=== PATIENT | female | born 1990 | race Caucasian/White ===

== ENCOUNTER 2017-06-15 02:05 | Inpatient (IN) ==
--- OUTSIDE RECORDS SUMMARY | 2017-06-15 02:11 | External Medical Summary | Continuity of Care Document ---
:1990 Author Organization [facility] Address [address] [place], [place] [id number] Phone Allergies, Adverse Reactions, Alerts Substance Reaction Severity Status No Known Drug Allergies Unknown Active Medications Medication Instructions Dosage Effective Dates Status Comments (start - stop) Rhophylac 1,500 - Active unit (300 mcg)/2 mL injection syringe Vitamin take 1 tablet by Not Available - Active tablet oral route every day Problems Condition Effective Dates (start - stop) Clinical Status Encntr for suprvsn of normal first - preg, third trimester 33 weeks gestation of - Pap Smear Screening, Cervix - Encntr for suprvsn of normal first - preg, first trimester 10 weeks gestation of - Encntr for suprvsn of normal first - preg, second trimester 27 weeks gestation of - Matern care for oth or susp poor fetl - grth, third tri, unsp 33 weeks gestation of - Encntr for suprvsn of normal first - preg, second trimester 19 weeks gestation of - Encntr for suprvsn of normal first - preg, second trimester 14 weeks gestation of - Encntr for suprvsn of normal first - preg, second trimester 19 weeks gestation of - Encntr for suprvsn of normal first - preg, second trimester 23 weeks gestation of - Encntr for suprvsn of normal first - preg, third trimester 35 weeks gestation of - Encntr for suprvsn of normal first - preg, third trimester 29 weeks gestation of - Encntr for suprvsn of normal first - preg, third trimester 31 weeks gestation of - OCP Surveillance - Active Urinary Frequency - Active Procedures Procedure Date OB Visit No Charge Results Test Name Date and Time Measure Units Reference Range Abnormal Flag Comments Unknown Advance Directives Directive Yes / No Effective Date File Name Unknown Encounters Encounter Practice Location Reason(s) Diagnoses Date Provider Care Team Description For Visit Members Jennifer Gonzalez Encntr for Garcia Referring In Womens suprvsn of Alice. Provider: Verna SEGAL, normal first 7 [address], preg, third Medical Emily, [address] [place], [place], [id number] [facility] [id number], weeks , [facility] gestation of 120, To 120, tel:+ Carlos Gonzalez, [address] [place], [place], [phone]. , [place]. tel: tel: [phone] Jennifer Gonzalez Encntr for Garcia Referring In Womens suprvsn of Alice. Provider: Verna SEGAL, normal first 7 [address], preg, third Medical Emily, [address] [place], [place], [id number] [facility] [id number], weeks , [facility] [place] gestation of 120, To 120, tel: Carlos Gonzalez, [address] [place], [place], [phone]. , [place]. tel: tel: [phone] Jennifer Gonzalez Matern care Apr- Garcia Referring In Womens Ultrasound for oth or Alice. Provider: Verna SEGAL, susp poor 7 [address], fetl grth, Medical Emily, [address] [place], [place], third tri, [facility] [id number], [id number] weeks , [facility] [place] gestation of 120, To 120, tel:[phone] Carlos Gonzalez, [address] [place], [place], [phone]. , [place]. tel: tel: [phone] Jennifer Gonzalez Encntr for Delroy-1 Garcia Referring In Womens suprvsn of 1-201 Alice. Provider: Verna SEGAL, normal first 7 [address], preg, third Medical Emily, [address] [place], [place], [id number] [facility] [id number], weeks , [facility] gestation of 120, To 120, tel: Carlos Gonzalez, [address] [place], [place], [phone]. , [place]. tel: tel: [phone] Jennifer Gonzalez Encntr for Tejinder-2 Price Referring In Womens suprvsn of 7-201 Lulu. Provider: Verna SEGAL, normal first 7 [address], preg, third Medical Emily, [address] [place], [place], [id number] [facility] [id number], weeks Dr [facility] gestation of 120, To 120, tel: Carlos Gonzalez, [address] [place], [place], [id number] [phone]. , [place]. tel: tel: [phone] Jennifer Gonzalez Encntr for Tejinder-1 Price Referring In Womens suprvsn of 3-201 Lulu. Provider: Verna SEGAL, normal first 7 [address], preg, second Medical Emily, [address] [place], [place], [id number] [facility] [id number], weeks Dr [facility] gestation of 120, To 120, tel:21 Carlos Gonzalez, [address] [place], [place], [phone]. , [place]. tel: tel: [phone] Jennifer Gonzalez Encntr for May-1 Price Referring In Womens suprvsn of 8-201 Lulu. Provider: Verna SEGAL, normal first 7 [address], preg, second Medical Emily, [address] [place], [place], [id number] [facility] [id number], weeks Dr [facility] [place] gestation of 120, To 120, tel:21 Carlos Gonzalez, [address] [place], [place], [phone]. , [place]. tel: tel: [phone] Jennifer Gonzalez Encntr for Apr-1 Price Referring In Womens suprvsn of 9- Lulu. Provider: Verna SEGAL, normal first 7 [address], preg, second Medical Emily, [address] [place], [place], [id number] [facility] [id number], weeks , [facility] [place] gestation of 120, To 120, tel: Carlos Gonzalez, [address] [place], [place], [phone]. , [place]. tel: tel: [phone] Jennifer Gonzalez Encntr for Apr-1 Price Referring In Womens Ultrasound suprvsn of - Lulu. Provider: Verna SEGAL, normal first 7 [address], preg, second Medical Emily, [address] [place], [place], [id number] [facility] [id number], weeks Dr [facility] [place] gestation of 120, To 120, tel:21 Carlos Gonzalez, [address] [place], [place], [phone]. , [place]. tel: tel: [phone] Jennifer Gonzalez Encntr for Mar-1 Price Referring In Womens suprvsn of - Lulu. Provider: Verna SEGAL, normal first 7 [address], preg, second Medical Emily, [address] [place], [place], [id number] [facility] [id number], weeks Dr [facility] [place] gestation of 120, To 120, tel:21 Carlos Gonzalez, [address] [place], [place], [phone]. , [place]. tel: tel: [phone] Jennifer Gonzalez Pap Smear Feb- Price Referring In Womens Screening, - Lulu. Provider: Verna SEGAL, CervixEncntr 7 [address], for suprvsn Medical Emily, [address] [place], [place], of [facility] Medical [id number], first [email or web address], , [facility] [address] CASAS first 120, To 120, tel: [id number] Carlos Gonzalez, [address] [place], [place], gestation of [id number]. , [place]. tel: tel: [phone] Jennifer Gonzalez Emily Referring In Womens 3-201 Tali. Provider: Health PA, 5 [address], Medical Emily, 700 [facility] Medical [id number], , [facility] Dr CASAS 120, To 120, tel: Carlos Gonzalez, [address] [place], [place], [phone]. , [place]. tel: tel: [phone] Family History Family Member Diagnosis Age At Onset No family history of Lung Disease No family history of Pulmonary Embolism No family history of Osteoporosis Maternal Grandfather Cardiovascular Disease No family history of Thyroid Disorder No family history of Epilepsy No family history of Venous Thrombosis No family history of Kidney Disease No family history of Colon Cancer No family history of Ovarian Cancer No family history of Diabetes No family history of Stroke No family history of Breast Cancer No family history of Hypertension Immunizations Vaccine Date Status Comments Tdap completed Source: New Immunization Record [facility] completed Source: New Immunization Record Payers Payer name Insurance type Covered green party ID Authorization(s) [employer]end[employer]ize [id number] [employer] [place] - Medicaid MC [id number] [facility] [id number] [facility] [id number] [place] - Medicaid MC [id number] [facility] [email or web address] [id number] [place] - Medicaid MC [id number] Social History Type Description Quantity Date Captured Alcohol Use Details No Caffeine Use Details Unknown Tobacco Use Status Unknown Smoking Status Never smoker Vital Signs Date / Height Weight BMI Pulse Blood Temperature Respiratory Body Head BMI Time: Rate Pressure Rate Surface Circumference percentile Area 145.40 26.3 120/79 lbs 4 mm[Hg] 1:36 kg/m PM eter (2) Chief Complaint And Reason For Visit Unknown Chief Complaint And Reason For Visit Reason For Referral Reason For Referral Unknown Plan Of Care Date Type Action Status Appointment Luiza Jaramillo BOOKED Future Order: Radiology Order Ultrasound OB Follow-up ([id number]) Ordered Future Order: Radiology Order Complete OB Ultrasound > 14 Ordered Weeks ([id number]) Future Order: Lab Order Pap Smear With HPV Reflex If ASCUS Ordered ([id number]) Date Type Problem Goal Intervention Status Start Date Unknown. History Of Present Illness Encounter Date Complaint History Of Present Illness This patient has no known history of present illness Functional Status Encounter Date Functional Assessment Cognitive Assessment Unknown Medications Administered Medication Instructions Dosage Effective Dates (start - stop) Status Comments Drug Treatment Unknown Instructions Date Instruction Additional Information [facility] Preadmis appt handout
--- OUTSIDE RECORDS SUMMARY | 2017-06-15 02:11 | External Medical Summary | Continuity of Care Document ---
:1990 Author Organization [facility] Address [address] [place], [place] [id number] Phone Allergies, Adverse Reactions, Alerts Substance Reaction [...] third trimester 35 weeks gestation of - Pap Smear Screening, [...] third trimester 31 weeks gestation of - Encntr for suprvsn of normal first - preg, third trimester 33 weeks gestation of - Encntr for suprvsn of normal first - preg, third trimester Encounter for screening of - mother 36 weeks gestation of - Encntr for suprvsn of normal first - preg, third trimester 37 weeks gestation of - Encntr for suprvsn of normal first - preg, third trimester 38 weeks gestation of - OCP Surveillance - Active Urinary Frequency - Active Procedures Procedure Date OB Visit No Charge Results Test Name Date and Time Measure Units Reference Range Abnormal Flag Comments Unknown Advance Directives Directive Yes / No Effective Date File Name Unknown Encounters Encounter Practice Location Reason(s) Diagnoses Date Provider Care Team Description For Visit Members Jennifer Gonzalez Encntr for May- Garcia Referring In Womens suprvsn of normal 9-201 Alice. Provider: Health LUZMA, first preg, third 7 [address] [id number] weeks Medical Emily, 700 [address], gestation of [facility], [facility] , [facility] [address] URBINA, 120, To 120, [id number], Carlos Gonzalez, [facility], [place], tel: [phone]. , [place]. tel: tel: [phone] Jennifer Gonzalez Encntr for May- Garcia Referring In Womens suprvsn of normal 2-201 Alice. Provider: Health PA, first preg, third 7 700 Tali PO [address] [id number] weeks Medical Emily, 700 [address]22, gestation of [facility] , [facility] [address] URBINA, 120, To 120, [id number], Carlos Gonzalez, [place], tel: [phone]. , [place]. tel: tel: [phone] Jennifer Gonzalez Encntr for Aug-1 Garcia Referring In Womens suprvsn of normal 6-201 Aliec. Provider: Verna SEGAL, first preg, third 7 700 Tali PO Box trimesterEncounte Medical Emily, 700 [address]22, r for [facility], screening of , [facility] Dr URBINA, [email or web address] weeks 120, To 120, , gestation of Carlos Gonzalez, [place], [place], tel: [phone]. , [place]. tel: tel: [phone] Jennifer Gonzalez Encntr for Aug-0 Garcia Referring In Womens suprvsn of normal 9-201 Alice. Provider: Verna SEGAL, first preg, third 7 700 Tali PO Box [id number] weeks Medical Emily, 700 [address]22, [facility], , [facility] [address] [place]RBINA, 120, To 120, , Carlos Gonzalez, [place], tel: [phone]. , [place]. tel: tel: [phone] Jennifer Gonzalez Encntr for Apr-2 Garcia Referring In Womens suprvsn of normal 6-201 Alice. Provider: Verna SEGAL, first preg, third 7 700 Tali PO Box [id number] weeks Medical Emily, 700 [address]22, gestation of [facility], , [facility] [address] [place]RBINA, 120, To 120, , Carlos Gonzalez, [place], tel: [phone]. , [place]. tel: tel: [phone] Jennifer Gonzalez Matern care for Delroy-2 Garcia Referring In Womens Ultrasound oth or susp poor 6-201 Alice. Provider: Verna SEGAL, fetl grth, third 7 700 Tali PO Box tri, [id number] weeks Medical Emily, 700 [address]22, gestation of [facility], , [facility] [address] URBINA, 120, To 120, , Carlos Gonzalez, [facility], [place], tel: [phone]. , [place]. tel: tel: [phone] Jennifer Gonzalez Encntr for Delroy-1 Garcia Referring In Womens suprvsn of normal 1-201 Alice. Provider: Health LUZMA, first preg, third 7 700 Tali PO Box [id number] weeks Medical Emily, 700 [address]22, gestation of [facility], , [facility] [address] URBINA, 120, To 120, , Carlos Gonzalez, [facility], [place], tel: [phone]. , [place]. tel: tel: [phone] Jennifer Gonzalez Encntr for Tejinder-2 Price Referring In Womens suprvsn of normal 7-201 Lulu. Provider: Health LUZMA, first preg, third 7 700 Tali PO Box weeks Medical Emily, 700 [address]22, gestation of [facility], , [facility] [address] URBINA, 120, To 120, [id number], Carlos Gonzalez, [facility], [place], tel: [phone]. , [place]. tel: tel: [phone] Jennifer Gonzalez Encntr for Tejinder-1 Price Referring In Womens suprvsn of normal 3-201 Lulu. Provider: Health LUZMA, first preg, 7 700 Tali PO Box second Medical Emily, 700 1522, [email or web address] weeks [facility] of , [facility] [address] URBINA, 120, To 120, [id number], Carlos Gonzalez, [facility], [place], tel: [phone]. , [place]. tel: tel: [phone] Jennifer Gonzalez Encntr for May-1 Price Referring In Womens suprvsn of normal 8-201 Lulu. Provider: Health LUZMA, first preg, 7 700 Tali PO Box second Medical Emily, 700 1522, [id number] [facility] of Dr [facility] [address] URBINA, 120, To 120, [id number], Carlos Gonzalez, [place], [place], tel: [phone]. , [place]. tel: tel: [phone] Jennifer Gonzalez Encntr for Apr-1 Price Referring In Womens suprvsn of normal 9-201 Lulu. Provider: Verna SEGAL, first preg, 7 700 Tali PO Box second Medical Emily, 700 1522, [id number] weeks [facility], gestation of , [facility] [address] URBINA, 120, To 120, , Carlos Gonzalez, [place], [place], tel: [phone]. , [place]. tel: tel: [phone] Jennifer Gonzalez Encntr for Apr-1 Price Referring In Womens Ultrasound suprvsn of normal 9-201 Lulu. Provider: Verna SEGAL, first preg, 7 700 Tali PO Box second Medical Emily, 700 [address]22, [id number] weeks [facility], gestation of , [facility] [address] URBINA, 120, To 120, , Carlos Gonzalez, [place], [place], tel: [phone]. , [place]. tel: tel: [phone] Jennifer Gonzalez Encntr for Mar-1 Price Referring In Womens suprvsn of normal 4-201 Lulu. Provider: Verna SEGAL, first preg, 7 700 Tali PO Box second Medical Emily, 700 1522, [id number] weeks [facility], gestation of , [facility] [address] URBINA, 120, To 120, , Carlos Gonzalez, [place], [place], tel: [phone]. , [place]. tel: tel: [phone] Jennifer Gonzalez Pap Smear Feb- Price Referring In Womens Screening, 4-201 Lulu. Provider: Verna SEGAL, CervixEncntr for 7 700 Tali PO Box suprvsn of clarkia Medical Emily, 700 1522, first preg, first [facility], [id number] weeks , [facility] Dr URBINA, gestation of 120, To 120, [id number], Carlos Gonzalez, [place], [place], tel: [phone]. , . tel: tel: [phone] Jennifer Gonzalez Nov- Emily Referring In Womens 3-201 Tali. Provider: [facility], 5 700 Tali PO Box Medical Emily, 700 [address], Rosanky Erin Chavez, , [facility] [address] URBINA, 120, To 120, [id number], Carlos Gonzalez, [place], [place], tel: [phone]. , [place]. tel: tel: [phone] Family History Family Member Diagnosis Age At [...] Comments Tdap completed Source: New Immunization Record Rhophylac completed Source: New Immunization Record Payers Payer name Insurance type Covered republican ID Authorization(s) [employer] [id number] [employer] [place] - Medicaid MC [id number] [facility] [id number] [facility] [id number] [place] - Medicaid MC [id number] [facility] [id number] [employer] - Medicaid MC [id number] Social History Type Description Quantity Date Captured Alcohol Use Details No Caffeine Use Details Unknown Tobacco Use Status Unknown Smoking Status Never smoker Vital Signs Date / Height Weight BMI Pulse Blood Temperature Respiratory Body Head BMI Time: Rate Pressure Rate Surface Circumference percentile Area 146.50 26.5 115/ lbs 4 mm[Hg] 1:30 kg/m PM eter (2) Chief Complaint And Reason For Visit Unknown Chief Complaint And Reason For Visit Reason For Referral Reason For Referral Unknown Plan Of Care Date Type Action Status Appointment Luiza Jaramillo BOOKED Future Order: Radiology Order Ultrasound OB Follow-up ([id number]) Ordered Future Order: Radiology Order Complete OB Ultrasound > 14 Ordered Weeks ([id number]) Future Order: Lab Order Pap Smear With [...] Treatment Unknown Instructions Date Instruction Additional Information labor signs group B strep screening [facility] Preadmis appt handout
--- OUTSIDE RECORDS SUMMARY | 2017-06-15 02:11 | External Medical Summary | Continuity of Care Document ---
:1990 Author Organization [facility] Address [address] [place], [place] [id number] Phone Allergies, Adverse Reactions, Alerts Substance Reaction Severity Status No Known Drug Allergies Unknown Active Medications Medication Instructions Dosage Effective Dates Status Comments (start - stop) Rhophylac 1,500 - Active unit (300 mcg)/2 mL injection syringe Vitamin take 1 tablet by Not Available - Active tablet oral route every day Problems Condition Effective Dates (start - stop) Clinical Status Matern care for oth or susp poor fetl - grth, third tri, unsp 33 weeks gestation of - Pap Smear Screening, Cervix - Encntr for suprvsn of normal first - preg, first trimester 10 weeks gestation of - Encntr for suprvsn of normal first - preg, second trimester 27 weeks gestation of - Encntr for suprvsn [...] Urinary Frequency - Active Procedures Procedure Date Ultrasnd preg uterus, flwup/repeat Results Test Name Date and Time Measure [...] [address], preg, third Medical Emily, [address] [place], [place], [id number] [facility] [id number], weeks , [facility] gestation of 120, To 120, tel:+ Carlos Carlos, [address] [place], [place], [id number]. , [place]. tel: tel: [phone] Jennifer Gonzalez Encntr for Garcia Referring In Womens suprvsn of Alice. Provider: Verna SEGAL, normal first 7 [address], preg, third Medical Emily, [address] [place], [place], [id number] [facility] [id number], weeks Dr [facility] [place] gestation of 120, To 120, tel: Carlos Gonzalez, [address] [place], [place], [id number]. , [place]. tel: tel: [phone] Jennifer Gonzalez Matern care Garcia Referring In Womens Ultrasound for oth or Alice. Provider: Verna SEGAL, susp poor 7 [address], fetl grth, Medical Emily, [address] [place], [place], third tri, [facility] [id number], [id number] weeks , [facility] gestation of 120, To 120, tel: Carlos Carlos, [address] [place], [place], [id number]. , [place]. tel: tel: [phone] Jennifer Gonzalez Encntr for Delroy-1 Garcia Referring In Womens suprvsn of 1-201 Alice. Provider: Verna SEGAL, normal first 7 [address], preg, third Medical Emily, [address] [place], [id number] [facility] [id number], weeks , [facility] gestation of 120, To 120, tel:21 Carlos Carlos, [address] [place], [place], [id number]. , [place]. tel: tel: [phone] Jennifer Gonzalez Encntr for Tejinder-2 Price Ref[facility]201 Lulu. Provider: Verna SEGAL, normal first 7 [address], preg, third Medical Emily, [address] [place], [id number] [facility] [id number], weeks , [facility] gestation of 120, To 120, tel:21 Carlos Gonzalez, [address] [place], [place], [id number]. , [place]. tel: tel: [phone] Jennifer Gonzalez Encntr for Tejinder- Price Referring In Womens suprvsn of 3-201 Lulu. Provider: Verna SEGAL, normal first 7 [address], preg, second Medical Emily, [address] [place], [place], [facility] [id number], weeks Dr [facility] gestation of 120, To 120, tel:21 Carlos Gonzalez, [address] [place], [place], [id number]. , [place]. tel: tel: [phone] Jennifer Gonzalez Encntr for May-1 Price Referring In Womens suprvsn of 8-201 Lulu. Provider: Verna SEGAL, normal first 7 [address], preg, second Medical Emily, [address] [place], [id number] [facility] [id number], weeks Dr [facility] [place] gestation of 120, To 120, tel: Carlos Gonzalez, [id number] [place] [address], [id number]. , [place]. tel: tel: [phone] Jennifer Gonzalez Encntr for Apr-1 Price Referring In Womens suprvsn of - Lulu. Provider: Verna SEGAL, normal first 7 [address], preg, second Medical Emily, [address] [place], [id number] [facility] [id number], weeks , [facility] [place] gestation of 120, To 120, tel: Carlos Gonzalez, [id number] [place] [address], [id number]. , [place]. tel: tel: [phone] Jennifer Gonzalez Encntr for Apr-1 Price Referring In Womens Ultrasound suprvsn of Lulu. Provider: Verna SEGAL, normal first 7 [address], preg, second Medical Emily, [address] [place], [id number] [facility] [id number], weeks Dr [facility] [place] gestation of 120, To 120, tel: Carlos Gonzalez, [address] [place], [place], [id number]. , [place]. tel: tel: [phone] Jennifer Gonzalez Encntr for Mar-1 Price Referring In Womens suprvsn of - Lulu. Provider: Verna SEGAL, normal first 7 [address], preg, second Medical Emliy, [address] [place], [id number] [facility] [id number], weeks Dr [facility] [place] gestation of 120, To 120, tel:21 Carlos Gonzalez, [address] [place], [place], [id number]. , [place]. tel: tel: [phone] Jennifer Gonzalez Pap Smear Nov- Price Referring In Womens Screening, - Lulu. Provider: Verna SEGAL, CervixEncntr 7 [address], for suprvsn Medical Emily, [address] [place], [place], [facility] [id number], first mike Dr, [facility] Center Dr CASAS first 120, To 120, tel:21 [id number] Carlos Gonzalez, [address] [place], gestation of [id number]. , [place]. tel: tel: [phone] Jennifer Gonzalez Emily Referring In Womens 3-201 Tali. Provider: Verna SEGAL, 5 [address], Medical Emily, [address] [place], [place], [facility] [id number], , [facility] 120, To 120, tel:21 Carlos Gonzalez, [address] [place], [place], [id number]. , [place]. tel: tel: [phone] Family History Family Member Diagnosis Age At [...] Record Payers Payer name Insurance type Covered constitution party ID Authorization(s) [facility] [id number] [employer] [place] - Medicaid [place] [id number] [facility] [id number] [facility] [employer] [id number] [place] [id number] [facility] [id number] [place] Medicaid [place] [id number] Social History Type Description Quantity Date Captured Unknown Vital Signs Date / Height Weight BMI Pulse Blood Temperature Respiratory Body Head BMI Time: Rate Pressure Rate Surface Circumference percentile Area Unknown Chief Complaint And Reason For Visit Unknown Chief Complaint And Reason For Visit Reason For Referral Reason For Referral Unknown Plan Of Care Date Type Action Status Appointment Clint, Luiza BOOKED Future Order: Radiology Order Ultrasound OB Follow-up ([id number]) Ordered Future Order: Radiology Order Complete OB Ultrasound > 14 Ordered Weeks ([id number]) Future Order: Lab Order Pap Smear With [...] Treatment Unknown Instructions Date Instruction Additional Information [facility] Preadmis appt handout
--- OUTSIDE RECORDS SUMMARY | 2017-06-15 02:11 | External Medical Summary | Continuity of Care Document ---
:1990 Author Organization [facility] Address [address] [place], [place] [id number] Phone Allergies, Adverse Reactions, Alerts Substance Reaction [...] third trimester 31 weeks gestation of - Pap Smear Screening, [...] third trimester 33 weeks gestation of - OCP Surveillance - Active Urinary Frequency - Active Procedures Procedure Date Immuniz admnin, 1 vac, sngl/combo 19 Yrs + TDAP VACCINE >7 IM OB Visit No Charge Results Test Name [...] [address], preg, third Medical Emily, [address] [place], [place], [id number] [facility] [id number], weeks , [facility] [place] gestation of 120, To 120, tel: Carlos Gonzalez, [address] [place], [place], [phone]. , [place]. tel: tel: [phone] Jennifer Gonzalez Matern care Garcia Referring In Womens Ultrasound for oth or Alice. Provider: Verna SEGAL, susp poor 7 [address], fetl grth, Medical Emily, [address] [place], [facility] [id number], unsp33 weeks , [facility] [place] gestation of 120, To 120, tel:21 GonzalezCarlos, [address] [place], [place], [id number]. , [place]. tel: tel: [phone] Jennifer Gonzalez Encntr for Garcia Referring In Womens suprvsn of Alice. Provider: Verna SEGAL, normal first 7 [address], preg, third Medical Emily, [address] [place], [id number] [facility] [id number], weeks , [facility] [place] gestation of 120, To 120, tel: Carlos Carlos, [address] [place], [place], [phone]. , [place]. tel: tel: [phone] Jennifer Gonzalez Encntr for Tejinder-2 Price Referring In Womens suprvsn of 7-201 Lulu. Provider: Verna SEGAL, normal first 7 [address], preg, third Medical Emily, [address] [place], [id number] [facility] [id number], weeks , [facility] gestation of 120, To 120, tel:+ Carlos Carlos, [address] [place], [place], [id number]. , [place]. tel: tel: [phone] Jennifer Gonzalez Encntr for Tejinder-1 Price Referring In Womens suprvsn of 3-201 Lulu. Provider: Verna SEGAL, normal first 7 [address], preg, second Medical Emily, [address] [place], [id number] [facility] [id number], weeks , [facility] gestation of 120, To 120, tel:21 Carlos Carlos, [address] [place], [place], [id number]. , [place]. tel: tel: [phone] Jennifer Gonzalez Encntr for May-1 Price Referring In Womens suprvsn of 8-201 Lulu. Provider: Verna SEGAL, normal first 7 [address], preg, second Medical Emily, [address] [place], [id number] [facility] [id number], weeks Dr [facility] gestation of 120, To 120, tel:21 Carlos Carlos, [address] [place], [place], [id number]. , [place]. tel: tel: [phone] Jennifer Gonzalez Encntr for Apr-1 Price Referring In Womens suprvsn of 9-201 Lulu. Provider: Verna SEGAL, normal first 7 [address], preg, second Medical Emily, [address] [place], [id number] [facility] [id number], weeks , [facility] [place] gestation of 120, To 120, tel: Carlos Gonzalez, [address] [place], [place], [id number]. , [place]. tel: tel: [phone] Jennifer Gonzalez Encntr for Apr-1 Price Referring In Womens Ultrasound suprvsn of 9- Lulu. Provider: Verna SEGAL, normal first 7 [address], preg, second Medical Emily, [address] [place], [email or web address] [facility] [id number], weeks , [facility] [place] gestation of 120, To 120, tel: Carlos Gonzalez, [address] [place], [place], [id number]. , [place]. tel: tel: [phone] Jennifer Gonzalez Encntr for Dec- Price Referring In Womens suprvsn of - Lulu. Provider: Verna SEGAL, normal first 7 [address], preg, second Medical Emily, [address] [place], [id number] [facility] [id number], weeks , [facility] [place] gestation of 120, To 120, tel:21 Carlos Gonzalez, [address] [place], [place], [id number] [phone]. , [place]. tel: tel: [phone] Jennifer Gonzalez Pap Smear Fe- Price Referring In Womens Screening, - Lulu. Provider: Verna SEGAL, CervixEncntr 7 [address], for suprvsn Medical Emily, [address] [place], of normal [facility] [id number], first Dr mike [facility] [place] first 120, To 120, tel:21 [id number] Carlos Gonzalez, [address] weeks [place], gestation of [id number]. , [place]. tel: tel: [phone] Jennifer Gonzalez Fe- Emily Referring In Womens 3-201 Tali. Provider: Verna SEGAL, 5 [address], Medical Emily, 700 [facility] [id number], , [facility] 120, [facility] 120, tel:21 Carlos Gonzalez, [address] [place], [place], [id number]. , [place]. tel: tel: [phone] Family History Family Member Diagnosis Age At [...] Comments Tdap completed Source: New Immunization Record [facility] completed Source: New Immunization Record Payers Payer name Insurance type Covered green party ID Authorization(s) [facility] [id number] [employer] [employer] [place] - Medicaid [place] [id number] [facility] [id number] [facility] [id number] [employer] [place] - Medicaid [place] [id number] [facility] [id number] [place] - Medicaid [place] [id number] Social History Type Description Quantity Date Captured Alcohol Use Details No Caffeine Use Details soda 4 x per week per day Tobacco Use Status Never smoked tobacco Smoking Status Never smoker Vital Signs Date / Height Weight BMI Pulse Blood Temperature Respiratory Body Head BMI Time: Rate Pressure Rate Surface Circumference percentile Area 141.00 25.5 / lbs 4 mm[Hg] 11:07 kg/m AM eter (2) 0 11:02 kg/m AM eter (2) Chief Complaint And Reason For Visit Unknown Chief Complaint And Reason For Visit Reason For Referral Reason For Referral Unknown Plan Of Care Date Type Action Status Appointment Luiza Jaramillo BOOKED Future Order: Radiology Order Ultrasound OB Follow-up ([id number]) Ordered Future Order: Radiology Order Complete OB Ultrasound > 14 Ordered Weeks ([id number]) Future Order: Lab Order Pap Smear With [...] Treatment Unknown Instructions Date Instruction Additional Information Unknown
[2017-06-15] MEDS ORDERED: SALINE FLUSH 10ml SYRINGE IVF PRN (02:17)
[2017-06-15] MEDS ORDERED: CARBOPROST 250 MCG/ML INJECTION IM PRN (02:17)
[2017-06-15] MEDS ORDERED: METHYLERGONOVINE 0.2 MG/ML INJECTION IM PRN (02:17)
[2017-06-15] MEDS ORDERED: CALCIUM CARBONATE Chewable 500mg TABLET PO PRN (02:17)
[2017-06-15] MEDS ORDERED: LIDOCAINE 1% (10mg/ml) 2mL INJ PF SDV ID PRN (02:17)
[2017-06-15] MEDS ORDERED: MAG-AL + SIM ORAL LIQUID 30ml PO PRN (02:17)
[2017-06-15] MEDS ORDERED: ACETAMINOPHEN 500 MG TABLET PO PRN (02:17)
[2017-06-15] MEDS ORDERED: D5LR 1,000 ML IV SCH (02:30)
[2017-06-15] MEDS: LR 1,000 ML IV SCH ×3 (02:52→06:41)
[2017-06-15 03:06] VITALS: RESP 16
[2017-06-15 03:07] VITALS: BMI 25.7
[2017-06-15] MEDS ORDERED: D5LR 1,000 ML IV PRN (04:56)
[2017-06-15] MEDS ORDERED: OXYTOCIN DRIP 30 UNIT/500 ML ML IV PRN (04:56)
[2017-06-15] MEDS ORDERED: SALINE FLUSH 10ml SYRINGE ONE (06:37)
[2017-06-15] MEDS ORDERED: PHENYLEPHRINE INJ 10 MG/ML VIAL IV ONE (06:37)
[2017-06-15] MEDS ORDERED: [UNRECOGNIZED DRUG - REMARK] ONE (06:37)
[2017-06-15] MEDS ORDERED: NALOXONE 0.4 MG/ML INJECTION IVP PRN (06:51)
[2017-06-15] MEDS ORDERED: ROPIVACAINE 1% 10MG/ML INJ 200 MG, SUFentanil 50 MCG in NS 100 ML EPI PRN (06:51)
[2017-06-15] MEDS ORDERED: ONDANSETRON 4 MG/2 ML INJECTION IVP PRN (06:51)
[2017-06-15] MEDS ORDERED: DiphenhydrAMINE 50 MG/ML INJECTION IVP PRN (06:51)
--- NOTE | 2017-06-15 06:51 | Anesthesia Preoperative Report ---
Anesthesia Epidural/Spinal Rec - Date and Time Date: 06/15/17 Preoperative Diagnosis: Procedure: Labor Epidural Plan: Epidural - Vital Signs Vital Signs: Temperature 98.1 F 06/15/17 02:32 Pulse Rate 76 06/15/17 02:32 Respiratory Rate 16 06/15/17 02:32 Blood Pressure 124/80 06/15/17 02:32 /Para: P:0 - Medictaions & Allergies Inpatient Medications: Current Medications Acetaminophen (Tylenol) 500 - 1,000 mg PO Q4H PRN PRN Reason: Pain Al Hydroxide/Mg Hydroxide (Maalox Plus) 30 ml PO Q3H PRN PRN Reason: Indigestion Calcium Carbonate (Tums) 500 - 1,000 mg PO Q2H PRN PRN Reason: Indigestion Carboprost Tromethamine (Hemabate) 250 mcg IM O PRN PRN Reason: .Downtime Lactated Ringer's (Lactated Ringers) 1,000 mls @ 999 mls/hr IV .Q1H1M GRACE Last Admin: 06/15/17 06:41 Dose: 999 mls/hr Dextrose/Lactated Ringer's (Dextrose 5%-Lactated Ringers) 1,000 mls @ 125 mls/ hr IV .Q8H PRN PRN Reason: Labor Last Admin: 06/15/17 05:00 Dose: 125 mls/hr Oxytocin (Pitocin Drip) 30 unit in 500 mls @ 2 mls/hr IV .Q24H PRN; Protocol PRN Reason: Induction/Augmentation Last Admin: 06/15/17 04:59 Dose: 2 mls/hr Lidocaine HCl (Xylocaine-Mpf 1% Vial) 0.2 mg ID O PRN PRN Reason: IV Start Methylergonovine Maleate (Methergine) 0.2 mg IM O PRN Misoprostol (Cytotec) 800 mcg TN ONCE PRN Sodium Chloride (Iv Flush) 10 - 80 ml IVF PRN PRN PRN Reason: Flushing Allergies/Adverse Reactions: Allergies Allergy/AdvReac Type Severity Reaction Status Date / Time No Known Allergies Allergy Verified 06/08/17 15:34 - Home Medications Home Medications: Home Medications Medication Instructions Recorded Confirmed Type Vitamins 06/08/17 History - Surgical History Anesthesia Reactions: None Hx Family Anesthesia Reaction: No History of Motion Sickness: No - Social History Second Hand Exposure: No Substance Use Type: does not use Alcohol Intake Frequency: does not drink - Pertinent Findings Lab Data: CBC and BMP 06/15/17 02:18 EKG Rhythm: Normal Sinus Rhythm - Physical Exam Respiratory Exam: lungs clear Cardiovascular Exam: regular rate and rhythm, no murmur - Airway Assessment Mallampati Score: I TMD: 3 Fingerbreadths Neck Extension: good Overall Assessment: no airway concerns - ASA ASA Score: 2 - Discussion Discussion: Discussed risks/options/alternatives of anesthesia and questions answered. Patient consents. Nursing pain assessment noted. Anesthesia Discussion: spouse Attestation Statement: Prior to the delivery of any anesthetic medication, I examined the patient, developed the plan, obtained the patient's consent and discussed the risk and benefits of the procedure with the patient/guardian.
[2017-06-15] MEDS ORDERED: DiphenhydrAMINE 25 MG CAPSULE PO PRN (15:19)
[2017-06-15] MEDS ORDERED: OXYTOCIN DRIP 30 UNIT/500 ML ML IV SCH (15:19)
[2017-06-15] MEDS ORDERED: HYDROCORTISONE 2.5% CREAM 30gm RECTALLY PRN (15:19)
[2017-06-15] MEDS: IBUPROFEN 800 MG TABLET PO PRN (19:09)
[2017-06-15] MEDS: HYDROCODONE/APAP 5mg/325mg TABLET PO PRN (19:09)
[2017-06-16] MEDS: HYDROCODONE/APAP 5mg/325mg TABLET PO PRN ×3 (04:31→18:06)
--- NOTE | 2017-06-16 05:53 | Anesthesia Postoperative Note ---
- Date and Time Date: 06/16/17 Time: 05:53 - Status Patient Participated in Evaluation: Patient Participated in Person Vital Signs: Temperature 98.2 F 06/15/17 22:30 Pulse Rate 77 06/15/17 22:30 Respiratory Rate 16 06/15/17 22:30 Blood Pressure 114/65 06/15/17 22:30 Pulse Oximetry 96 06/15/17 22:30 Respiratory Function: Airway Patent, Regular Respirations Cardiovascular Function: Regular Pulse Mental Status: Alert and Oriented Pain Intensity: 0 Hydration: Taking PO Fluids Complications During Recover: None Apparent - Follow-Up Instructions Instructions: Per Surgeon
--- NOTE | 2017-06-16 06:19 | Pharmacy Consult ---
Pharmacy Consult-Rhophylac - Laboratory Information 06/15/17 06/15/17 06/15/17 02:18 16:14 17:36 Hgb /Adult Ratio 0.0000 Blood Type O Negative RhIG Candidate? Is a candidate - Consult Information Rh FACTOR CONSULT: Mother Blood Type = O NEGATIVE Child Blood Type = O POSITIVE Hgb / Adult Ratio = 0.0000 Will give Rho D Immunglobulin 300mcg IV x 1 dose. Thank you.
[2017-06-16 07:25] VITALS: O2SAT 99
--- NOTE | 2017-06-16 07:51 | OB/GYN Progress Note ---
OB-PP Progress Note - General PPD1 Maternal Group B Strep: Negative Maternal blood type: O- Maternal Rubella Status: Immune General: Baby O positive - Subjective Date: 06/16/17 Lochia: Minimal Pain: contolled Voiding: voiding - Objective Vital Signs: Last Vital Signs Temp 98.7 F 06/16/17 07:15 Pulse 72 06/16/17 07:15 Resp 16 06/16/17 07:15 BP 121/81 06/16/17 07:15 Pulse Ox 99 06/16/17 07:15 General: alert and oriented Abdomen: fundus firm, non-tender Extremities: non-tender Laboratory: Laboratory Results - last 24 hr 06/15/17 06/15/17 16:14 17:36 Hgb /Adult Ratio 0.0000 RhIG Candidate? Is a candidate - Assessment Assessment: - Plan Plan: routine care, rhophylac, discharge home, continue PNV
--- NOTE | 2017-06-16 07:54 | Discharge Instructions ---
Discharge Plan - Med Rec/Dispo Prescriptions: New Hydrocodone/APAP 5/325 [[place] 5/325] 1 - 2 tab PO Q4H PRN #30 tab PRN Reason: Pain Ibuprofen [Motrin] 800 mg PO Q8H PRN #30 tab PRN Reason: Pain Continue Vitamins Discharge Instructions/Outpatient Orders: Final Provider Discharge Instructions Location: Determined By Patient - Disposition 01 Discharged Home, Self-Care
[2017-06-16] MEDS ORDERED: DOCUSATE CALCIUM 240 MG CAPSULE PO SCH (09:00)
[2017-06-16] MEDS ORDERED: RHO(D) IMMUNE GLOBULIN 300 MCG/2 ML INJECTION IVP ONE (10:00)
--- NOTE | 2017-06-16 10:56 | Labor and Delivery Note ---
DATE OF DELIVERY: 06/15/2017 Luiza is a 26-year-old, 1 at 39 weeks gestational age who presented to Maternal Child with spontaneous rupture of membranes. She was 1 cm and not amie so she was started on Pitocin. She received an epidural. She progressed steadily throughout labor and only had to push for less than 15 minutes. She had a spontaneous vaginal delivery of a viable male , Apgars 9/10, weight 3362 grams, name "Doroteo". The baby was vigorous at delivery so he was placed on mom's abdomen and the cord clamping was delayed for more than 2 minutes. The placenta delivered spontaneously. She had a second-degree perineal laceration and bilateral periurethral lacerations. She was not having adequate pain control of the introitus so her lacerations were injected with local prior to repair. Mom and baby tolerated the delivery well. LUCIUS
[2017-06-16 16:00] VITALS: BP 131/81; PULSE 84; TEMP 97.5
[2017-06-16] MEDS: IBUPROFEN 800 MG TABLET PO PRN (18:06)
== END 2017-06-16 20:10 | disposition home or self-care (01) | DRG 775 ==
LOC: OBOBS 02:05 → MC 02:06
PROVIDERS: ADMIT Obstetrics & Gynecology; ATTEND Obstetrics & Gynecology